=== PATIENT | female | born 2000 | race Two or more races ===

== ENCOUNTER 2022-07-18 06:07 | Emergency (ER) | payer MEDICAID ==
[~2022-07-18] VITALS: Ht 167.6 cm; Wt 59.1 kg
[2022-07-18] MEDS ORDERED: KETOROLAC TROMETHAMINE 30 MG/ML VIAL IVP ONE (06:45)
[2022-07-18] MEDS ORDERED: SODIUM CHLORIDE 0.9% 1,000 ML IV ONE (06:45)
[2022-07-18] MEDS ORDERED: MAG HYDROX/AL HYDROX/SIMETH 30 ML SUSP UDCUP PO ONE (06:45)
[2022-07-18] MEDS ORDERED: FAMOTIDINE 10 MG/ML 2 ML VIAL IVP ONE (06:45)
[2022-07-18] MEDS ORDERED: ONDANSETRON HCL 4 MG/2 ML VIAL IVP ONE (06:45)
[2022-07-18 06:57] LABS: BASOPHILS % (AUTO) 0.3 % (0.0-2.0); EOSINOPHILS % (AUTO) 0 % (1.0-6.0); HEMATOCRIT 40.1 % (36-46); HEMOGLOBIN 13.6 g/dL (12.0-16.0); LYMPHOCYTES # (AUTO) 0.6 K/uL (1.0-4.8); LYMPHOCYTES % (AUTO) 2.3 % (22.0-44.0); MEAN CORPUSCULAR HEMOGLOBIN 29.9 pg (26.0-34.0); MEAN CORPUSCULAR HGB CONC 33.9 G/dL (31.0-37.0); MEAN CORPUSCULAR VOLUME 88 fL (80-100); MONOCYTES # (AUTO) 0.8 K/uL (0.1-1.0); MONOCYTES % (AUTO) 3.1 % (2.0-9.0); NEUTROPHILS # (AUTO) 23.5 K/uL (1.8-7.7); PLATELET COUNT (AUTO) 404 K/uL (150-450); RED BLOOD CELL COUNT(AUTO) 4.54 MIL/uL (4.00-5.20); RED CELL DISTRIBUTION WIDTH 13.8 % (11.5-14.5)
[2022-07-18 07:03] LABS: NEUTROPHILS % (AUTO) 94.3 % (40.0-70.0)
[2022-07-18 07:08] LABS: ANION GAP 15 mmol/L (8-16); CALCIUM, TOTAL 10.5 mg/dL (8.8-10.5); CARBON DIOXIDE 24 mmol/L (22-29); CHLORIDE 99 mmol/L (98-107); CREATININE 1.04 mg/dL (0.60-1.30); GLUCOSE,RANDOM 151 mg/dL (70-110); POTASSIUM 3.8 mmol/L (3.5-5.1); SODIUM SERUM 138 mmol/L (136-145); UREA NITROGEN, BLOOD 14 mg/dL (7-18)
[2022-07-18 07:13] LABS: GLOMERULAR FILTR. RATE CALC > 60 mL/min (>60)
[2022-07-18 07:27] LABS: ALANINE AMINOTRANSFERASE 28 U/L (12-78); ALKALINE PHOSPHATASE 91 U/L (46-116); ASPARTATE AMINOTRANSFERASE 83 U/L (15-37); BILIRUBIN,TOTAL 0.6 mg/dL (0.1-1.0); HCG,QUANTITATIVE < 1 mIU/mL (0-6); TOTAL PROTEIN, SERUM 9.3 g/dL (6.4-8.2)
[2022-07-18] MEDS ORDERED: IOHEXOL 300 MG/ML 100 ML VIAL ONE (07:28)
[2022-07-18] MEDS ORDERED: SODIUM CHLORIDE 0.9% 100 ML ONE (07:28)
[2022-07-18] MEDS ORDERED: MORPHINE SULFATE 2 MG/ML SYRINGE IVP ONE (07:30)
[2022-07-18 08:55] VITALS: BP 120/72
[2022-07-18 08:58] LABS: LIPASE 26 U/L (73-393)
[2022-07-18] MEDS ORDERED: ONDA-104 PO (09:12)
[2022-07-18 09:13] LABS: AMPHET/METH SCREEN,URINE NEGATIVE (NEGATIVE); BARBITURATE SCREEN, URINE NEGATIVE (NEGATIVE); BENZODIAZEPINES SCREEN,URINE NEGATIVE (NEGATIVE); CANNABINOID SCREEN,URINE POSITIVE (NEGATIVE); COCAINE SCREEN,URINE NEGATIVE (NEGATIVE); METHADONE SCREEN, URINE NEGATIVE (NEGATIVE); OPIATE SCREEN,URINE POSITIVE (NEGATIVE)
[2022-07-18 09:27] LABS: PHENCYCLIDINE SCREEN,URINE NEGATIVE (NEGATIVE)
== END 2022-07-18 09:53 | disposition home or self-care (01) ==
LOC: EMS 06:10
DX: R11.2 Nausea with vomiting, unspecified (principal); R19.7 Diarrhea, unspecified; F12.90 Cannabis use, unspecified, uncomplicated; Z79.899 Other long term (current) drug therapy
CPT/HCPCS: 99285; 74177; 96374; 96375; 96361; 80053; 83690; 84702; 85025; 36415; 80307; G0480; J3490; J1885; J2270; J2405; J7030; J7050; Q9967

== ENCOUNTER 2023-12-20 01:30 | Emergency (ER) | payer MEDICAID ==
[~2023-12-20] VITALS: Ht 165.1 cm; Wt 59.1 kg
[~2023-12-20 01:30] MED LIST: ONDA-104 PO
[2023-12-20 01:32] VITALS: RESP 16
[2023-12-20 01:53] LABS: BASOPHILS % (AUTO) 0.4 % (0.0-2.0); EOSINOPHILS % (AUTO) 0 % (1.0-6.0); HEMATOCRIT 39.1 % (36-46); HEMOGLOBIN 13.4 g/dL (12.0-16.0); LYMPHOCYTES # (AUTO) 1.1 K/uL (1.0-4.8); LYMPHOCYTES % (AUTO) 7.1 % (22.0-44.0); MEAN CORPUSCULAR HEMOGLOBIN 30.1 pg (26.0-34.0); MEAN CORPUSCULAR HGB CONC 34.2 G/dL (31.0-37.0); MEAN CORPUSCULAR VOLUME 88 fL (80-100); MONOCYTES # (AUTO) 0.4 K/uL (0.1-1.0); MONOCYTES % (AUTO) 2.7 % (2.0-9.0); NEUTROPHILS # (AUTO) 13.8 K/uL (1.8-7.7); PLATELET COUNT (AUTO) 412 K/uL (150-450); RED BLOOD CELL COUNT(AUTO) 4.45 MIL/uL (4.00-5.20); RED CELL DISTRIBUTION WIDTH 13.2 % (11.5-14.5); WHITE BLOOD COUNT (AUTO) 15.4 K/uL (4.5-11.0)
[2023-12-20 02:00] VITALS: BP 129/75; PULSE 74; TEMP 98.3
[2023-12-20 02:03] LABS: ANION GAP 20 mmol/L (8-16); CALCIUM, TOTAL 9.1 mg/dL (8.8-10.5); CARBON DIOXIDE 21 mmol/L (22-29); CHLORIDE 101 mmol/L (98-107); CREATININE 0.79 mg/dL (0.60-1.30); GLOMERULAR FILTR. RATE CALC > 60 mL/min (>60); GLUCOSE,RANDOM 138 mg/dL (70-110); POTASSIUM 3.5 mmol/L (3.5-5.1); SODIUM SERUM 142 mmol/L (136-145); UREA NITROGEN, BLOOD 11 mg/dL (7-18)
[2023-12-20 02:11] LABS: ALANINE AMINOTRANSFERASE 21 U/L (12-78); ALBUMIN 4.5 g/dL (3.4-5.0); ALKALINE PHOSPHATASE 87 U/L (46-116); ASPARTATE AMINOTRANSFERASE 53 U/L (15-37); BILIRUBIN,TOTAL 0.2 mg/dL (0.1-1.0); HCG,QUANTITATIVE < 1 mIU/mL (0-6); LIPASE 12 U/L (16-77); TOTAL PROTEIN, SERUM 9.1 g/dL (6.4-8.2)
[2023-12-20] MEDS: ONDANSETRON HCL 4 MG/2 ML VIAL IVP ONE (02:15)
[2023-12-20] MEDS: MORPHINE SULFATE 4 MG/ML SYRINGE IVP ONE (02:15)
[2023-12-20] MEDS: SODIUM CHLORIDE 0.9% 2,000 ML IV ONE (02:15)
[2023-12-20 02:19] LABS: NEUTROPHILS % (AUTO) 89.8 % (40.0-70.0)
[2023-12-20] MEDS: PB/HYOSCY/ATR/SCOP/LIDO/MAALOX 55 ML BOTTLE PO ONE (03:00)
[2023-12-20 04:14] LABS: APPEARANCE,URINE CLEAR (CLEAR); BILIRUBIN,URINE NEGATIVE (NEGATIVE); COLOR,URINE COLORLESS (YELLOW); GLUCOSE, URINE (UA) NEGATIVE (NEGATIVE); KETONES,URINE 40-60 mg/dL (NEGATIVE); LEUKOCYTE ESTERASE ,URINE NEGATIVE (NEGATIVE); NITRATE,URINE NEGATIVE (NEGATIVE); OCCULT BLOOD,URINE NEGATIVE (NEGATIVE); PH,URINE 6.5 (5.0-8.0); PROTEIN,URINE NEGATIVE (NEGATIVE); SPECIFIC GRAVITIY, URINE 1.015 (1.003-1.030); UROBILINOGEN,URINE <=1.0 mg/dL (<=1.0)
[2023-12-20] MEDS ORDERED: MAG30ORA11 PO (05:25)
[2023-12-20] MEDS ORDERED: ONDA-104 PO (05:25)
[2023-12-20] MEDS ORDERED: OMEP20 PO (05:25)
[2023-12-20] MEDS ORDERED: ACET-66 PO (05:25)
== END 2023-12-20 07:35 | disposition home or self-care (01) ==
LOC: EMS 01:31
DX: K29.70 Gastritis, unspecified, without bleeding (principal); B96.89 Other specified bacterial agents as the cause of diseases classified elsewhere; F12.90 Cannabis use, unspecified, uncomplicated
CPT/HCPCS: 99285; 96374; 76700; 96361; 96375; 80053; 81003; 83690; 84702; 84703; 85025; 36415; J2270; J2405; J7030

== ENCOUNTER 2023-12-21 14:04 | Emergency (ER) | payer MEDICAID ==
[~2023-12-21] VITALS: Ht 165.1 cm; Wt 59.1 kg
[~2023-12-21 14:04] MED LIST changes: +ACET-66 PO; +MAG30ORA11 PO; +OMEP20 PO
[2023-12-21 14:07] VITALS: TEMP 98.9
[2023-12-21] MEDS: SODIUM CHLORIDE 0.9% 1,000 ML IV ONE (14:40)
[2023-12-21] MEDS: ONDANSETRON HCL 4 MG/2 ML VIAL IVP ONE (14:40)
[2023-12-21 14:50] LABS: BASOPHILS % (AUTO) 0.4 % (0.0-2.0); EOSINOPHILS % (AUTO) 0.3 % (1.0-6.0); HEMATOCRIT 39.4 % (36-46); HEMOGLOBIN 13.3 g/dL (12.0-16.0); LYMPHOCYTES # (AUTO) 2.8 K/uL (1.0-4.8); LYMPHOCYTES % (AUTO) 18.8 % (22.0-44.0); MEAN CORPUSCULAR HGB CONC 33.7 G/dL (31.0-37.0); MEAN CORPUSCULAR VOLUME 89 fL (80-100); MONOCYTES % (AUTO) 6.7 % (2.0-9.0); NEUTROPHILS # (AUTO) 10.8 K/uL (1.8-7.7); NEUTROPHILS % (AUTO) 73.8 % (40.0-70.0); PLATELET COUNT (AUTO) 372 K/uL (150-450); RED BLOOD CELL COUNT(AUTO) 4.43 MIL/uL (4.00-5.20); RED CELL DISTRIBUTION WIDTH 13.3 % (11.5-14.5); WHITE BLOOD COUNT (AUTO) 14.6 K/uL (4.5-11.0)
[2023-12-21 15:09] LABS: ANION GAP 11 mmol/L (8-16); CALCIUM, TOTAL 9.3 mg/dL (8.8-10.5); CARBON DIOXIDE 29 mmol/L (22-29); CHLORIDE 101 mmol/L (98-107); CREATININE 0.84 mg/dL (0.60-1.30); GLOMERULAR FILTR. RATE CALC > 60 mL/min (>60); GLUCOSE,RANDOM 130 mg/dL (70-110); POTASSIUM 3.2 mmol/L (3.5-5.1); SODIUM SERUM 141 mmol/L (136-145); UREA NITROGEN, BLOOD 11 mg/dL (7-18)
[2023-12-21] MEDS: DiphenhydrAMINE HCL 50 MG/ML VIAL IVP ONE (15:20)
[2023-12-21] MEDS: HALOPERIDOL LACTATE 5 MG/ML VIAL IVP ONE (15:20)
[2023-12-21 15:21] LABS: ALANINE AMINOTRANSFERASE 23 U/L (12-78); ALBUMIN 4.7 g/dL (3.4-5.0); ALKALINE PHOSPHATASE 87 U/L (46-116); ASPARTATE AMINOTRANSFERASE 38 U/L (15-37); BILIRUBIN,TOTAL 0.7 mg/dL (0.1-1.0); HCG,QUANTITATIVE < 1 mIU/mL (0-6); LIPASE 15 U/L (16-77); TOTAL PROTEIN, SERUM 8.7 g/dL (6.4-8.2)
[2023-12-21] MEDS: PB/HYOSCY/ATR/SCOP/LIDO/MAALOX 55 ML BOTTLE PO ONE (15:51)
[2023-12-21 15:59] VITALS: BP 127/77; PULSE 88; RESP 22
== END 2023-12-21 17:09 | disposition home or self-care (01) ==
LOC: EMS 14:14
DX: K52.9 Noninfective gastroenteritis and colitis, unspecified (principal); F12.90 Cannabis use, unspecified, uncomplicated
CPT/HCPCS: 99284; 96374; 96375; 96361; 80053; 83690; 84702; 85025; 36415; J1200; J1630; J2405; J7030

== ENCOUNTER 2023-12-22 09:03 | Emergency (ER) | payer MEDICAID ==
[~2023-12-22] VITALS: Ht 165.1 cm; Wt 59.1 kg
[2023-12-22 09:14] VITALS: TEMP 98.3
[2023-12-22 09:55] LABS: BASOPHILS % (AUTO) 0.6 % (0.0-2.0); EOSINOPHILS % (AUTO) 0.4 % (1.0-6.0); HEMOGLOBIN 12.8 g/dL (12.0-16.0); LYMPHOCYTES # (AUTO) 2.5 K/uL (1.0-4.8); LYMPHOCYTES % (AUTO) 19.4 % (22.0-44.0); MEAN CORPUSCULAR HEMOGLOBIN 29.9 pg (26.0-34.0); MEAN CORPUSCULAR HGB CONC 33.6 G/dL (31.0-37.0); MEAN CORPUSCULAR VOLUME 89 fL (80-100); MONOCYTES # (AUTO) 1.1 K/uL (0.1-1.0); MONOCYTES % (AUTO) 8.5 % (2.0-9.0); NEUTROPHILS # (AUTO) 9.2 K/uL (1.8-7.7); NEUTROPHILS % (AUTO) 71.1 % (40.0-70.0); PLATELET COUNT (AUTO) 334 K/uL (150-450); RED BLOOD CELL COUNT(AUTO) 4.27 MIL/uL (4.00-5.20); RED CELL DISTRIBUTION WIDTH 13.1 % (11.5-14.5); WHITE BLOOD COUNT (AUTO) 12.9 K/uL (4.5-11.0)
[2023-12-22] MEDS ORDERED: IOHEXOL 350 MG/ML 100 ML VIAL ONE (10:04)
[2023-12-22] MEDS ORDERED: SODIUM CHLORIDE 0.9% 100 ML ONE (10:04)
[2023-12-22 10:11] LABS: B-TYPE NATRIURETIC PEPTIDE 40 pg/mL (0-100)
[2023-12-22] MEDS: MAG HYDROX/ALUMINUM HYD/SIMETH 30 ML SUSPENSION UDCUP PO ONE (10:15)
[2023-12-22] MEDS: SODIUM CHLORIDE 0.9% 1,000 ML IV ONE (10:15)
[2023-12-22] MEDS: ONDANSETRON HCL 4 MG/2 ML VIAL IVP ONE (10:15)
[2023-12-22] MEDS: FAMOTIDINE 20 MG/2 ML VIAL IVP ONE (10:16)
[2023-12-22] MEDS: KETOROLAC TROMETHAMINE 30 MG/ML VIAL IVP ONE (10:16)
[2023-12-22 10:22] LABS: TROPONIN I-HIGH SENSITIVITY Less Than 4 ng/L (<51)
[2023-12-22 10:55] LABS: ANION GAP 11 mmol/L (8-16); CALCIUM, TOTAL 8.7 mg/dL (8.8-10.5); CARBON DIOXIDE 26 mmol/L (22-29); CHLORIDE 102 mmol/L (98-107); CREATININE 0.85 mg/dL (0.60-1.30); GLOMERULAR FILTR. RATE CALC > 60 mL/min (>60); GLUCOSE,RANDOM 105 mg/dL (70-110); POTASSIUM 3.4 mmol/L (3.5-5.1); SODIUM SERUM 139 mmol/L (136-145); UREA NITROGEN, BLOOD 7 mg/dL (7-18)
[2023-12-22 11:25] LABS: ALANINE AMINOTRANSFERASE 20 U/L (12-78); ALBUMIN 4.2 g/dL (3.4-5.0); ALKALINE PHOSPHATASE 78 U/L (46-116); ASPARTATE AMINOTRANSFERASE 31 U/L (15-37); BILIRUBIN,TOTAL 0.8 mg/dL (0.1-1.0); CREATINE KINASE, TOTAL ONLY 341 U/L (26-192); LIPASE 14 U/L (16-77); TOTAL PROTEIN, SERUM 8.1 g/dL (6.4-8.2)
[2023-12-22 11:45] VITALS: BP 138/60; PULSE 88; RESP 18
== END 2023-12-22 12:45 | disposition home or self-care (01) ==
LOC: EMS 09:03
DX: R10.13 Epigastric pain (principal); R06.02 Shortness of breath; F12.90 Cannabis use, unspecified, uncomplicated
CPT/HCPCS: 99285; 74177; 96374; 76705; 96375; 71045; 96361; 80053; 82550; 83690; 83880; 84484; 84703; 85025; 85379; 36415; 93005; J3490; J1885; J2405; Q9967; J7030; J7050

== ENCOUNTER 2024-08-18 08:47 | Emergency (ER) | payer SELFPAY ==
[~2024-08-18] VITALS: Ht 165.1 cm; Wt 59.1 kg
[2024-08-18 09:12] LABS: BASOPHILS % (AUTO) 0.1 % (0.0-2.0); EOSINOPHILS % (AUTO) 0.2 % (1.0-6.0); HEMOGLOBIN 13.5 g/dL (12.0-16.0); LYMPHOCYTES # (AUTO) 1.2 K/uL (1.0-4.8); LYMPHOCYTES % (AUTO) 6.4 % (22.0-44.0); MEAN CORPUSCULAR HEMOGLOBIN 30.4 pg (26.0-34.0); MEAN CORPUSCULAR HGB CONC 33.8 G/dL (31.0-37.0); MEAN CORPUSCULAR VOLUME 90 fL (80-100); MONOCYTES # (AUTO) 0.8 K/uL (0.1-1.0); MONOCYTES % (AUTO) 4.4 % (2.0-9.0); PLATELET COUNT (AUTO) 329 K/uL (150-450); RED BLOOD CELL COUNT(AUTO) 4.44 MIL/uL (4.00-5.20); RED CELL DISTRIBUTION WIDTH 13.4 % (11.5-14.5); WHITE BLOOD COUNT (AUTO) 19.2 K/uL (4.5-11.0)
[2024-08-18 09:14] LABS: NEUTROPHILS % (AUTO) 88.9 % (40.0-70.0)
[2024-08-18 09:29] LABS: ANION GAP 13 mmol/L (8-16); CALCIUM, TOTAL 9.4 mg/dL (8.8-10.5); CARBON DIOXIDE 25 mmol/L (22-29); CHLORIDE 102 mmol/L (98-107); CREATININE 0.91 mg/dL (0.60-1.30); GLOMERULAR FILTR. RATE CALC > 60 mL/min (>60); GLUCOSE,RANDOM 163 mg/dL (70-110); LIPASE 19 U/L (16-77); POTASSIUM 3.7 mmol/L (3.5-5.1); SODIUM SERUM 140 mmol/L (136-145); UREA NITROGEN, BLOOD 15 mg/dL (7-18)
[2024-08-18] MEDS: MORPHINE SULFATE 4 MG/ML SYRINGE IVP ONE ×2 (09:52→11:44)
[2024-08-18] MEDS: ONDANSETRON HCL 4 MG/2 ML VIAL IVP ONE ×2 (09:52→10:50)
[2024-08-18] MEDS ORDERED: SODIUM CHLORIDE 0.9% 100 ML ONE (10:15)
[2024-08-18] MEDS ORDERED: IOHEXOL 350 MG/ML 100 ML VIAL ONE (10:15)
[2024-08-18 10:21] LABS: ALANINE AMINOTRANSFERASE 18 U/L (12-78); ALBUMIN 4.5 g/dL (3.4-5.0); ALKALINE PHOSPHATASE 80 U/L (46-116); ASPARTATE AMINOTRANSFERASE 28 U/L (15-37); BILIRUBIN,TOTAL 0.6 mg/dL (0.1-1.0); TOTAL PROTEIN, SERUM 8.3 g/dL (6.4-8.2)
[2024-08-18] MEDS: IOHEXOL 9 MG/ML 500 ML BOTTLE PO ONE (10:23)
[2024-08-18] MEDS: SODIUM CHLORIDE 0.9% 2,000 ML IV ONE (11:33)
[2024-08-18 13:10] LABS: APPEARANCE,URINE CLEAR (CLEAR); BILIRUBIN,URINE NEGATIVE (NEGATIVE); COLOR,URINE LIGHT YELLOW (YELLOW); GLUCOSE, URINE (UA) NEGATIVE (NEGATIVE); KETONES,URINE 40-60 mg/dL (NEGATIVE); LEUKOCYTE ESTERASE ,URINE NEGATIVE (NEGATIVE); NITRATE,URINE NEGATIVE (NEGATIVE); OCCULT BLOOD,URINE NEGATIVE (NEGATIVE); PROTEIN,URINE NEGATIVE (NEGATIVE); UROBILINOGEN,URINE <=1.0 mg/dL (<=1.0)
[2024-08-18 13:11] LABS: SPECIFIC GRAVITIY, URINE > 1.030 (1.003-1.030)
[2024-08-18 13:19] VITALS: BP 121/63; PULSE 69; RESP 16; TEMP 98.4; O2SAT 99
== END 2024-08-18 13:48 | disposition home or self-care (01) ==
LOC: EMS 08:49
DX: R10.13 Epigastric pain (principal); R11.0 Nausea; F12.90 Cannabis use, unspecified, uncomplicated
CPT/HCPCS: 99285; 74177; 96374; 96361; 96375; 80048; 80076; 81003; 83690; 84703; 85025; 36415; 96376; Q9967 ×2; J2270; J2405; J7030; J7050

== ENCOUNTER 2025-03-26 06:15 | Emergency (ER) | payer MEDICAID, OTHER ==
[~2025-03-26] VITALS: Ht 162.6 cm; Wt 56.4 kg
[~2025-03-26 06:15] MED LIST changes: -MAG30ORA11 PO; +OMEP-148 PO; -OMEP20 PO
[2025-03-26 06:32] VITALS: TEMP 97.9
[2025-03-26] MEDS ORDERED: KETOROLAC TROMETHAMINE 30 MG/ML VIAL IVP ONE (06:45)
[2025-03-26] MEDS: KETOROLAC TROMETHAMINE 15 MG/ML VIAL IVP ONE (06:58)
[2025-03-26] MEDS: FAMOTIDINE 20 MG/2 ML VIAL IVP ONE (06:59)
[2025-03-26] MEDS: SODIUM CHLORIDE 0.9% 1,000 ML IV ONE ×2 (06:59→09:26)
[2025-03-26] MEDS: ONDANSETRON HCL 4 MG/2 ML VIAL IVP ONE (06:59)
[2025-03-26] MEDS ORDERED: IOHEXOL 300 MG/ML 100 ML VIAL ONE (07:08)
[2025-03-26] MEDS ORDERED: 0.9% SODIUM CHLORIDE 10 ML SYRINGE IVP ONE (07:08)
[2025-03-26] MEDS ORDERED: SODIUM CHLORIDE 0.9% 100 ML ONE (07:08)
[2025-03-26 07:49] LABS: PLATELET COUNT (AUTO) 332 K/uL (150-450); RED BLOOD CELL COUNT(AUTO) 4.51 MIL/uL (4.00-5.20); RED CELL DISTRIBUTION WIDTH 13.1 % (11.5-14.5); WHITE BLOOD COUNT (AUTO) 14.7 K/uL (4.5-11.0)
[2025-03-26] MEDS: METOCLOPRAMIDE HCL 5 MG/ML 2 ML VIAL IVP ONE (07:53)
[2025-03-26 07:58] LABS: CALCIUM, TOTAL 8.7 mg/dL (8.8-10.5); CREATININE 0.73 mg/dL (0.60-1.30); GLOMERULAR FILTR. RATE CALC > 60 mL/min (>60); GLUCOSE,RANDOM 145 mg/dL (70-110); SODIUM SERUM 145 mmol/L (136-145); UREA NITROGEN, BLOOD 6 mg/dL (7-18)
[2025-03-26 08:08] LABS: ASPARTATE AMINOTRANSFERASE 25.0 U/L (15-37); TOTAL PROTEIN, SERUM 7.4 g/dL (6.4-8.2)
[2025-03-26 08:25] LABS: HCG,QUANTITATIVE 3.0 mIU/mL (0-6)
[2025-03-26] MEDS: MORPHINE SULFATE 2 MG/ML SYRINGE IVP ONE (08:35)
[2025-03-26 09:30] VITALS: BP 133/81; PULSE 73; RESP 17; O2SAT 100
[2025-03-26] MEDS ORDERED: ONDA-104 PO (09:50)
== END 2025-03-26 11:56 | disposition home or self-care (01) ==
LOC: EMS 06:15
DX: R11.2 Nausea with vomiting, unspecified (principal); F12.90 Cannabis use, unspecified, uncomplicated; Z79.899 Other long term (current) drug therapy
CPT/HCPCS: 99285; 74177; 96375; 96374; 96361; 80048; 80076; 83690; 84702; 85025; 36415; J1885; J1200; J3490; J2765; J2270; J2405; J7030; J7050; Q9967

== ENCOUNTER 2025-03-26 17:17 | Emergency (ER) | payer OTHER ==
[~2025-03-26] VITALS: Ht 162.6 cm; Wt 57.0 kg
[2025-03-26] MEDS: POTASSIUM CHLORIDE 20 MEQ ER TABLET PO ONE (18:36)
[2025-03-26 19:43] VITALS: BP 129/67; PULSE 66; RESP 17; TEMP 98.3; O2SAT 99
== END 2025-03-26 19:54 | disposition home or self-care (01) ==
LOC: EMS 17:17
DX: E87.6 Hypokalemia (principal); R20.2 Paresthesia of skin; R11.2 Nausea with vomiting, unspecified; F12.90 Cannabis use, unspecified, uncomplicated
CPT/HCPCS: 99282; Z7502; Z7610

== ENCOUNTER 2025-07-14 11:45 | Emergency (ER) | payer OTHER ==
[~2025-07-14] VITALS: Ht 165.1 cm; Wt 54.5 kg
[~2025-07-14 11:45] MED LIST changes: -ACET-66 PO; -OMEP-148 PO
[2025-07-14 11:48] VITALS: TEMP 97.9
[2025-07-14 12:16] LABS: PLATELET COUNT (AUTO) 358 K/uL (150-450); RED BLOOD CELL COUNT(AUTO) 4.45 MIL/uL (4.00-5.20); RED CELL DISTRIBUTION WIDTH 13.1 % (11.5-14.5); WHITE BLOOD COUNT (AUTO) 14.2 K/uL (4.5-11.0)
[2025-07-14 12:19] LABS: CALCIUM, TOTAL 9.0 mg/dL (8.8-10.5); CREATININE 0.94 mg/dL (0.60-1.30); GLOMERULAR FILTR. RATE CALC > 60 mL/min (>60); GLUCOSE,RANDOM 156 mg/dL (70-110); SODIUM SERUM 143 mmol/L (136-145); UREA NITROGEN, BLOOD 14 mg/dL (7-18)
[2025-07-14 12:23] LABS: ASPARTATE AMINOTRANSFERASE 25.0 U/L (15-37); TOTAL PROTEIN, SERUM 8.1 g/dL (6.4-8.2)
[2025-07-14 12:48] LABS: RBC MORPHOLOGY COMMENT NORMAL RBC MORPH
[2025-07-14] MEDS: ONDANSETRON HCL 4 MG/2 ML VIAL IVP ONE (13:18)
[2025-07-14] MEDS: MORPHINE SULFATE 4 MG/ML SYRINGE IVP ONE (13:19)
[2025-07-14] MEDS: SODIUM CHLORIDE 0.9% 1,000 ML IV ONE (13:20)
[2025-07-14] MEDS ORDERED: ACET-66 PO (13:34)
[2025-07-14] MEDS ORDERED: OMEP-148 PO (13:34)
[2025-07-14] MEDS: PB/HYOSCY/ATR/SCOP/LIDO/MAALOX 55 ML BOTTLE PO ONE (13:34)
[2025-07-14 14:00] VITALS: BP 119/88; PULSE 88; RESP 17; O2SAT 100
== END 2025-07-14 14:28 | disposition home or self-care (01) ==
LOC: EMS 11:52
DX: K29.70 Gastritis, unspecified, without bleeding (principal); E87.6 Hypokalemia; F12.90 Cannabis use, unspecified, uncomplicated
CPT/HCPCS: 99285; 96374; 76705; 96361; 96375; 80048; 80076; 83690; 84703; 85025; 36415; J2270; J2405; J7030

== ENCOUNTER 2025-07-16 01:10 | Emergency (ER) | payer OTHER ==
[~2025-07-16] VITALS: Ht 165.1 cm; Wt 59.1 kg
[~2025-07-16 01:10] MED LIST changes: +ACET-66 PO; +OMEP-148 PO; -ONDA-104 PO
[2025-07-16 01:42] LABS: PLATELET COUNT (AUTO) 343 K/uL (150-450); RED BLOOD CELL COUNT(AUTO) 4.41 MIL/uL (4.00-5.20); RED CELL DISTRIBUTION WIDTH 13.8 % (11.5-14.5); WHITE BLOOD COUNT (AUTO) 15.1 K/uL (4.5-11.0)
[2025-07-16 01:53] LABS: CALCIUM, TOTAL 9.0 mg/dL (8.8-10.5); CREATININE 0.76 mg/dL (0.60-1.30); GLOMERULAR FILTR. RATE CALC > 60 mL/min (>60); GLUCOSE,RANDOM 132 mg/dL (70-110); SODIUM SERUM 143 mmol/L (136-145); UREA NITROGEN, BLOOD 11 mg/dL (7-18)
[2025-07-16 02:05] LABS: HCG,QUANTITATIVE < 1 mIU/mL (0-6)
[2025-07-16] MEDS: SODIUM CHLORIDE 0.9% 1,000 ML IV ONE (03:18)
[2025-07-16] MEDS: ONDANSETRON HCL 4 MG/2 ML VIAL IVP ONE (03:18)
[2025-07-16] MEDS: KETOROLAC TROMETHAMINE 30 MG/ML VIAL IVP ONE (03:18)
[2025-07-16] MEDS ORDERED: IOHEXOL 350 MG/ML 100 ML VIAL ONE (03:25)
[2025-07-16] MEDS ORDERED: SODIUM CHLORIDE 0.9% 100 ML ONE (03:25)
[2025-07-16] MEDS ORDERED: ONDA-104 PO (03:54)
[2025-07-16 04:20] VITALS: BP 127/66; PULSE 78; RESP 17; TEMP 98.7; O2SAT 98
[2025-07-16] MEDS: PB/HYOSCY/ATR/SCOP/LIDO/MAALOX 55 ML BOTTLE PO ONE (04:47)
== END 2025-07-16 06:42 | disposition left against medical advice (07) ==
LOC: EMS 01:11
DX: R11.16 Cannabis hyperemesis syndrome (principal); R10.13 Epigastric pain; F12.90 Cannabis use, unspecified, uncomplicated; R10.20 Pelvic and perineal pain unspecified side; Z79.899 Other long term (current) drug therapy
CPT/HCPCS: 99284; 96374; 96375; 80048; 83690; 84702; 85025; 36415; J1885; Q9967; J2405; J7030; J7050